=== PATIENT | female | born 1985 | race Caucasian/White ===

== ENCOUNTER 2016-09-02 12:35 | Emergency (ER) | payer SELFPAY | END 2016-09-02 13:15 | disposition home or self-care (01) | LOC: ER 12:35 | DX: L23.9 Allergic contact dermatitis, unspecified cause (principal); Z88.5 Allergy status to narcotic agent; Z88.6 Allergy status to analgesic agent; Z79.899 Other long term (current) drug therapy | CPT/HCPCS: 96372; 99282-25; 99283 ==